=== PATIENT | male | born 1935 | race Caucasian/White ===

== ENCOUNTER → 2018-11-14 | Outpatient (REF) | payer MEDICARE ==
[~2018-11-14] MED LIST: AMLODIPINE10 MG OR; AMLODIPINE10 MG PO; AMOXICILLIN500 MG PO; ATENOLOL25 MG PO; BL ADULT ASA81 MG OR; CHERATUSSIN OR; CIPROFLOXACN500 MG OR; CIPROFLOXACN500 MG PO; EVOXAC30 MG OR; FLOMAX0.4 M1 PO; HYDROCO/APAP1 T11 PO; HYZAAR1 TA1 PO; HYZAAR1 TAB PO; KEFLEX500 MG PO; LISINOP/HCTZ1 TA1 OR; LISINOP/HCTZ1 TA2 PO; LOVASTATIN20 M1 OR; LOVASTATIN20 M1 PO; METFORMIN500 M1 PO; METOPROL TAR25 M1 OR; METOPROL TAR25 M1 PO; PRAZOSIN HCL1 M1 OR; ROBITUSSIN AC10 ML PO; TERBINAFINE250 M1 OR; TESSALON200 MG PO; TYLENOL500 MG OR; VICODIN ES1 TAB OR; ZITHROMAX500 MG PO; [UNRECOGNIZED DRUG - CODE]
[2018-11-14 08:31] LABS: ANION GAP 15 (6-22 (CALC)); BUN 27 mg/dL (8-23); BUN/CREATININE RATIO 27 (12-20 (CALC)); CARBON DIOXIDE 26 mmol/l (22-30); CHLORIDE 105 mmol/l (95-108); GFR > 60 ML/MIN (>=60 (CALC)); GFR FOR AFR.AMER. > 60 ML/MIN (>=60 (CALC)); POTASSIUM 4.8 mmol/l (3.5-5.1); SODIUM 141 mmol/l (137-146)
== END | disposition home or self-care (01) ==
LOC: LAB 06:35
PROVIDERS: ATTEND Nurse Practitioner Family
DX: E11.42 Type 2 diabetes mellitus with diabetic polyneuropathy (principal); I10 Essential (primary) hypertension

== ENCOUNTER → 2018-12-03 | Outpatient (REF) | payer MEDICARE | END | disposition home or self-care (01) | LOC: DI 10:29 | PROVIDERS: ATTEND Nurse Practitioner Family | DX: M25.511 Pain in right shoulder (principal) ==